=== PATIENT | female | born 1955 | race Two or more races ===

== ENCOUNTER 2017-03-15 08:04 | Day surgery (SDC) | payer OTHER ==
[2017-03-15] MEDS ORDERED: VITAMIN D (08:35)
[2017-03-15] MEDS ORDERED: PROPOFOL 40 ML ONE (09:48)
[2017-03-15] MEDS ORDERED: LIDOCAINE 2% (SDV) 5 ML INJ ONE (09:48)
[2017-03-15 09:51] VITALS: BP 141/86; PULSE 66; RESP 15
--- NOTE | 2017-03-15 10:44 | GILP ---
DATE OF PROCEDURE: PROCEDURE: Esophagogastroduodenoscopy. PREOPERATIVE DIAGNOSIS: The patient presenting with history of chronic abdominal pain unresponsive to routine therapy, rule out peptic ulcer disease, rule out gastritis, rule out malignancy. POSTOPERATIVE DIAGNOSES: 1. Localized nodular lesion noted in the mid body of the stomach. Biopsies were done. 2. Umbilicated polyp noted in the antrum. Biopsy was done. 3. Localized thickening of the fold was noted in the prepyloric area. Biopsy was done. DESCRIPTION OF PROCEDURE: After informed written consent was obtained, the patient was asked to lie on the left lateral side. Intravenous anesthesia was given by anesthesiologist, Dr. Galindo. Wh en the patient became somnolent, the Olympus video upper endoscope was introduced into the oropharyn x, then into the esophagus. Esophagus appeared normal with no mucosal abnormality. Endoscope at th is time was advanced into the stomach. There is a localized nodular area noted in the mid body of t he stomach, actually 3 or 4 of the small nodules were together in this area, erythema noted as well in this area. Multiple biopsies were obtained. The antrum showed evidence of a polyp with a centra l umbilication. Multiple biopsies were obtained. The prepyloric area showed evidence of thickening of the mucosa in localized area. Biopsies were done to rule out lymphoma. The duodenum showed a n ormal mucosal pattern up to the end of the third portion. At this time, endoscope was withdrawn to the stomach. The fundus of the stomach appeared normal. Biopsy was done to rule out Helicobacter p ylori infection from the antrum, the lesser curvature and the fundus. At this time, esophagus was r eexamined, which appeared normal. Endoscope at this time was withdrawn and the procedure was termin ated. PLAN: Recommend proton pump inhibitor therapy. Meanwhile, wait for the pathology report. Dictated By: BALJIT BROWN/WENDI Conf#: [id number] DID#: [id number] CC: [facility];*EndCC*
[2017-03-15 11:05] VITALS: BP 140/69; RESP 20
--- NOTE | 2017-03-15 11:18 | GILP ---
DATE OF PROCEDURE: PROCEDURE: Colonoscopy and polypectomy. PREOPERATIVE DIAGNOSIS: Screening colonoscopy. POSTOPERATIVE DIAGNOSES: 1. A 3 cm lobulated polyp on a stalk noted at 30 cm from the anus. This was removed with hot polyp ectomy technique. 2. Occasional diverticula noted. 3. Moderate degree of internal and external hemorrhoids noted. DESCRIPTION OF PROCEDURE: After informed written consent was obtained, the patient was asked to lie on the left lateral side. The patient was given intravenous anesthesia by anesthesiologist, Dr. Gulshan mendes. When the patient became somnolent, Olympus video colonoscope was introduced into the rectu m and scope was advanced all the way to the cecum. The entire colon appeared normal. Occasional di verticula noted in the descending colon. Rest of the colon up to the cecum appeared normal. On the way out, further evaluation was carried out by using the hot snare, polypectomy was performed and p olyp was retrieved and sent for histopathology. Retroflexion was performed. When the scope was wit hdrawn, moderate degree of external hemorrhoids were noted and the procedure was terminated. PLAN: Recommend wait for the pathology report. Dictated By: BALJIT BROWN/WENDI Conf#: [id number] DID#: [id number] CC: [facility];*EndCC*
== END 2017-03-15 15:12 | disposition home or self-care (01) ==
LOC: GIL 08:04
PROVIDERS: ATTEND Internal Medicine Gastroenterology
DX: Z12.11 Encounter for screening for malignant neoplasm of colon (principal); K29.50 Unspecified chronic gastritis without bleeding; K63.5 Polyp of colon; K57.90 Diverticulosis of intestine, part unspecified, without perforation or abscess without bleeding; K64.8 Other hemorrhoids; K64.4 Residual hemorrhoidal skin tags; Z88.0 Allergy status to penicillin
CPT/HCPCS: 43239; 45380; 88305; 88312; Z7610